=== PATIENT | female | born 1980 | race Caucasian/White ===

== ENCOUNTER 2020-06-09 08:05 | Observation (INO) ==
[2020-06-09] MEDS ORDERED: *HR* LORazepam 2 MG/ML VIAL IVP ONE (08:09)
[2020-06-09] MEDS ORDERED: 0.9 % Sodium Chloride 1,000 ML IVC ONE (08:10)
[2020-06-09 08:27] LABS: Basophils # 0.1 K/mcL (0.0-0.2); Basophils % 0.6 %; Eosinophils # 0.2 K/mcL (0.0-0.6); Eosinophils % 1.4 %; Hematocrit 42.5 % (35.3-44.9); Hemoglobin 13.5 g/dL (11.5-15.4); Immature Granulocytes % 0.3 % (0-4); Lymphocytes # 4.5 K/mcL (0.6-4.6); Lymphocytes % 40.3 %; Mean Corpuscular HGB Conc 31.8 g/dL (31.6-35.5); Mean Corpuscular Hemoglobin 31.3 pg (28.0-33.3); Mean Corpuscular Volume 98.4 fL (83.0-100.0); Mean Platelet Volume 11.2 fL (9.4-12.4); Monocytes # 0.9 K/mcL (0.0-1.3); Monocytes % 8.3 %; Neutrophils # 5.4 K/mcL (1.6-8.9); Platelet Count 240 K/mcL (140-400); Red Blood Count 4.32 M/mcL (3.82-4.97); Red Cell Distribution Width 13.4 % (11.5-14.5); Segmented Neutrophils % 49.1 %
[2020-06-09 08:34] LABS: Bilirubin,Urine Small (Negative); Blood,Urine Negative (Negative); Clarity,Urine Clear (Clear); Color,Urine Yellow (Yellow); Glucose,Urine (UA) Normal (Normal); Ketones,Urine Trace mg/dL (Negative); Leukocyte Esterase,Urine Negative (Negative); Nitrite,Urine Negative (Negative); Protein,Urine 30 mg/dL (Neg-Trace); Specific Gravity,Urine >= 1.030 (1.010-1.025)
[2020-06-09 08:45] LABS: Bacteria,Urine Few per hpf (None-Few); Hyaline Casts,Urine Few per lpf (None Seen); Mucus,Urine Moderate per lpf (None-Few); Squamous Epithelial Cell,Urine Few per hpf (None-Few); WBC,Urine 0-3 per hpf (0-3)
[2020-06-09 08:46] LABS: Calcium Oxalate Crystals,Urine Present
[2020-06-09 08:48] LABS: Acetaminophen < 10 mcg/mL (10-20); Alanine Aminotransferase 146 Units/L (7-52); Albumin 4.1 g/dL (3.5-5.7); Albumin/Globulin Ratio 1.1 (1.1-2.2); Alkaline Phosphatase 87 Units/L (34-104); Aspartate Amino Transferase 75 Units/L (13-39); BUN/Creatinine Ratio 22 (6-26); Bilirubin,Total 0.3 mg/dL (0.3-1.0); Blood Urea Nitrogen 20 mg/dL (6-20); Carbon Dioxide 16 mEq/L (23-29); Chloride 102 mEq/L (98-107); Globulin 3.8 g/dL (2.4-3.5); Glucose 120 mg/dL (70-105); Magnesium 2.6 mg/dL (1.6-2.6); Osmolality,Calculated 294 (280-300); Phosphorous 3.2 mg/dL (2.7-4.5); Potassium 3.7 mEq/L (3.5-5.1); Salicylate < 2.5 mg/dL (15.0-30.0); Sodium 140 mEq/L (136-145); Total Protein 7.9 g/dL (6.4-8.9); eGFR For African Americans > 60 (> 60); eGFR For Non-African Americans > 60 (> 60)
[2020-06-09 08:53] LABS: Platelet Estimate Normal (Normal)
[2020-06-09 08:54] LABS: Amphetamine Screen,Urine Positive ng/mL (Cutoff=1000); Barbiturate Screen,Urine Negative ng/mL (Cutoff=200); Benzodiazepines Screen,Urine Negative ng/mL (Cutoff=200); Cannabinoid Screen,Urine Negative ng/mL (Cutoff = 50); Cocaine Screen,Urine Negative ng/mL (Cutoff= 300); Opiate Screen,Urine Negative ng/mL (Cutoff=300); Phencyclidine Screen,Urine Negative ng/mL (Cutoff=25)
[2020-06-09 11:24] LABS: Adenovirus Not Detected (Not Detect); Bordetella Pertussis Not Detected (Not Detect); Chlamydophila pneumoniae Not Detected (Not Detect); Coronavirus 229E Not Detected (Not Detect); Coronavirus HKU1 Not Detected (Not Detect); Coronavirus NL63 Not Detected (Not Detect); Coronavirus OC43 Not Detected (Not Detect); Human Metapneumovirus Not Detected (Not Detect); Human Rhinovirus/Enterovirus Not Detected (Not Detect); Influenza A Subtype 2009 H1 Not Detected (Not Detect); Influenza B Not Detected (Not Detect); Mycoplasma pneumoniae Not Detected (Not Detect); Parainfluenza Virus 1 Not Detected (Not Detect); Parainfluenza Virus 2 Not Detected (Not Detect); Parainfluenza Virus 3 Not Detected (Not Detect); Parainfluenza Virus 4 Not Detected (Not Detect); Respiratory Syncytial Virus Not Detected (Not Detect)
[2020-06-09] MEDS ORDERED: Naloxone 0.4 MG/ML INJ IVP PRN ×2 (13:42→13:44)
[2020-06-09] MEDS ORDERED: Acetaminophen 325 MG TABLET PO PRN (13:44)
[2020-06-09] MEDS ORDERED: Ondansetron 4 MG/2 ML VIAL IVP PRN (13:44)
[2020-06-09] MEDS ORDERED: Mag Hydrox/Al Hydrox/Simeth 30 ML UDC PO PRN (13:44)
[2020-06-09] MEDS ORDERED: MOM Conc 10 ML UD.LIQ PO PRN (13:44)
[2020-06-09] MEDS ORDERED: *HR* LORazepam 2 MG/ML VIAL IVP PRN (13:46)
[2020-06-09] MEDS ORDERED: *HR* LORazepam 1 MG TABLET PO SCH (15:00)
[2020-06-09] MEDS ORDERED: Nicotine 21 MG PATCH.TD24 TD SCH (15:38)
[2020-06-09] MEDS ORDERED: Albuterol 2.5 MG/3 ML NEBULIZER IH PRN (16:26)
[2020-06-09 19:07] VITALS: BP 117/64
== END 2020-06-09 21:00 | disposition left against medical advice (07) ==
LOC: EMEROOPIK 08:05 → INPPIK 08:05 → EMEROOPIK 11:20 → INPPIK 12:35
PROVIDERS: ADMIT Family Medicine; ATTEND Family Medicine